=== PATIENT | female | born 1970 | race African-American/Black ===

== ENCOUNTER 2016-05-20 07:46 | Day surgery (SDC) | payer MEDICARE, OTHER ==
--- NOTE | ~2016-05-20 | OP ---
Record Of Operation [facility] [address] [place]. [address] NAME: PHILIPPE RAMIREZ : 70 STATUS : REG [facility]#: [id number] AGE: 46 ADM/REG DATE : 05/20/16 MR#: [id number] REPORT SERV DATE: 05/20/16 DICTATED BY: TEDDY GONZALEZ DATE: 05/20/16 REPORT STATUS : Draft TRANSCRIBED BY: MODL DATE: 05/20/16 DATE OF PROCEDURE: 05/20/2016 PREOPERATIVE DIAGNOSIS: Possible temporal arteritis. POSTOPERATIVE DIAGNOSIS: Possible temporal arteritis. OPERATION: Left temporal artery biopsy. SUMMARY: After adequate general anesthesia, prep, and drape, incision was made directly over the palpable temporal artery, and carried down through the skin and subcutaneous tissue. The temporal artery was dissected free gently from the surrounding tissue. This was then clipped proximally and distally and the specimen was removed. Proximal and distal ends were tied with 3-0 silk suture. Good hemostasis was obtained. After adequate irrigation good hemostasis again was obtained. Closure was accomplished with subdermal stitch of 3-0 Vicryl and Dermabond. Pressure dressing was applied. The patient tolerated the procedure well and taken to recovery room in satisfactory condition. RAO/RAE Teddy Gonzalez M.D. / [id number] CC: Antony Ley M.D.
[~2016-05-20 07:46] MED LIST: BEN25 PO; CLARIT10 PO; DEPAKOT500 PO; FERROUS SULF325 M1 PO; H5 PO; HYDROCODONE PO; LIPITOR10 PO; NEUR600 PO; NORV5 PO; POTASSIUM PO; PRILOSEC40 MG PO; PROAIR HFA INH; ZOL100 PO
== END 2016-05-20 13:45 | disposition home or self-care (01) ==
LOC: SDC 07:46
PROVIDERS: Specialist
PROC: 03BT3ZX Excision of Left Temporal Artery, Percutaneous Approach, Diagnostic (ICD-10-PCS; principal; 2016-05-20 08:45)
DX: R51 Headache (principal); E66.01 Morbid (severe) obesity due to excess calories; I10 Essential (primary) hypertension; G47.33 Obstructive sleep apnea (adult) (pediatric); K21.9 Gastro-esophageal reflux disease without esophagitis; J45.909 Unspecified asthma, uncomplicated; M79.7 Fibromyalgia; F31.9 Bipolar disorder, unspecified; F20.9 Schizophrenia, unspecified; E78.5 Hyperlipidemia, unspecified; M32.9 Systemic lupus erythematosus, unspecified; Z88.1 Allergy status to other antibiotic agents; Z88.8 Allergy status to other drugs, medicaments and biological substances; Z68.42 Body mass index [BMI] 45.0-49.9, adult; Z98.890 Other specified postprocedural states
CPT/HCPCS: 84703; 88305; 88313; 93005; A9270-GY; J0690; J2250; J2370; J2405; J3010